=== PATIENT | female | born 1985 | race African-American/Black ===

== ENCOUNTER 2021-02-07 08:48 | Emergency (ER) | payer OTHER ==
[~2021-02-07] VITALS: Ht 170.2 cm; Wt 110.0 kg
[~2021-02-07 08:48] MED LIST: ASPIRIN
[2021-02-07] MEDS ORDERED: PROCHLORPERAZINE 10MG/2ML VIAL IM ONE (09:15)
[2021-02-07] MEDS ORDERED: DIPHENHYDRAMINE 25MG CAPSULE PO ONE (09:15)
[2021-02-07] MEDS ORDERED: IBUPROFEN 600MG TABLET PO ONE (10:30)
[2021-02-07] MEDS ORDERED: IBUP-2029 MT (10:44)
[2021-02-07] MEDS ORDERED: ACETAMINOPHEN 325MG TABLET PO ONE (11:00)
[2021-02-07 11:17] VITALS: BP 152/81
== END 2021-02-07 11:28 | disposition home or self-care (01) ==
LOC: ER 08:48
DX: R51.9 Headache, unspecified (principal); F17.290 Nicotine dependence, other tobacco product, uncomplicated
CPT/HCPCS: 70450; 96372; 99284; 99406; J0780; Q0163

== ENCOUNTER 2021-02-19 13:43 | Emergency (ER) | payer OTHER ==
[~2021-02-19] VITALS: Ht 170.2 cm; Wt 127.0 kg
[~2021-02-19 13:43] MED LIST changes: +IBUP-2029 MT
[2021-02-19 13:44] VITALS: BP 148/94
[2021-02-19] MEDS ORDERED: TETRACAINE 0.5% OPHTH DROPS 4ML LEFTEYE ONE (14:30)
[2021-02-19] MEDS ORDERED: FLUORESCEIN SODIUM 1MG/STRIP LEFTEYE ONE (14:30)
[2021-02-19] MEDS ORDERED: OFLO5DRO3 LEFTEYE (16:05)
[2021-02-19] MEDS ORDERED: POLY15DR31 LEFTEYE (16:06)
== END 2021-02-19 16:26 | disposition home or self-care (01) ==
LOC: ER 13:43
DX: H10.32 Unspecified acute conjunctivitis, left eye (principal); Z98.890 Other specified postprocedural states
CPT/HCPCS: 99283